=== PATIENT | male | born 1995 | race Two or more races ===

== ENCOUNTER 2020-02-12 12:48 | Inpatient (IN) ==
[2020-02-12] MEDS ORDERED: SODIUM CHLORIDE 0.9% 1000ML 1,000 ML IV ONE ×2 (13:21→17:25)
--- NOTE | 2020-02-12 13:23 | Emergency Department Note ---
History of Present Illness General Chief complaint: Illness Stated complaint: MUSCLE PAIN AFTER EXTREME EXCERCISE,DARK URINE Time Seen by Provider: 02/12/20 13:08 History of Present Illness Provider complaint: Muscle aches and dark urine Onset (ago): day(s) 2 Severity: moderate Maximum Pain Intensity: 6 Quality: + aching 24-year-old male presents emergency department with muscle aches and dark urine. He states he is started working out again recently doing "intense" workouts for the last 2 days after. Of not working out for quite some time. He states he is noticed that he has been having a lot of muscle aches and noticed 2 days ago that he was having dark urine. He denies any hematuria but states it is extremely dark. He states he has been drinking a lot of water but is not been helping his myalgias or his dark urine. No supplements such as creatinine or anabolic steroids are being reported to be used by the patient. No chest pain or difficulty breathing. No fevers. No loss of taste or smell. Home Medications Home Medications Medication Instructions Recorded Confirmed Type azelastine 2 spray INTRANASAL BID 02/12/20 02/12/20 History cetirizine 10 mg PO QAM 02/12/20 02/12/20 History escitalopram oxalate [Lexapro] 5 mg PO QAM 02/12/20 02/12/20 History fluticasone propionate [Flonase 2 spray INTRANASAL BID 02/12/20 02/12/20 History Allergy Relief] lorazepam 0.5 mg PO DIRECTED PRN 02/12/20 02/12/20 History montelukast [Singulair] 10 mg PO HS 02/12/20 02/12/20 History oxymetazoline [Afrin 2 spray INTRANASAL Q12H 02/12/20 02/12/20 History (oxymetazoline)] trazodone 0 mg PO HS 02/12/20 02/12/20 History Allergies Allergy/AdvReac Type Severity Reaction Status Date / Time No Known Allergies Allergy Unverified 02/12/20 13:41 Past Med/Surg History Medical History (Updated 02/12/20 @ 18:35 by Jeremiah Lino) No pertinent family history No pertinent past medical history Surgical History (Updated 02/12/20 @ 13:23 by Jeremiah Lino) No pertinent past surgical history Social History Feels Safe at Home: Yes Smoking Status: Never smoker Review of Systems A total of 10 systems reviewed and were otherwise negative Physical Exam Vital Signs Vital Signs - 24 hr 02/12/20 12:56 02/12/20 14:55 02/12/20 14:56 Temperature 36.9 C Temperature Source Oral Pulse Rate 113 H 85 Pulse Rate [Finger] 82 Pulse Rate from SpO2 Sensor 84 Respiratory Rate 20 26 H 20 Respiratory Effort / Characteristics Non-Labored Spontaneous Non-Labored Spontaneous Respiratory Depth Normal Normal Respiratory Pattern Regular Regular Blood Pressure 134/81 130/87 Blood Pressure [Right Arm] 130/87 Blood Pressure Mean 98 90 Blood Pressure Mean [Right Arm] 101 Pulse Oximetry 97 98 98 Oxygen Delivery Method Room Air Room Air Room Air Sepsis Recent Fever Within 48 Hours No Sepsis New/Unexplained Change in Mental Status No Sepsis Action Taken by Nursing No Action Required 02/12/20 15:15 02/12/20 15:20 02/12/20 15:30 Temperature Temperature Source Pulse Rate 84 83 73 Pulse Rate [Finger] Pulse Rate from SpO2 Sensor 84 82 75 Respiratory Rate 24 18 23 Respiratory Effort / Characteristics Respiratory Depth Respiratory Pattern Blood Pressure Blood Pressure [Right Arm] Blood Pressure Mean Blood Pressure Mean [Right Arm] Pulse Oximetry 98 98 98 Oxygen Delivery Method Room Air Room Air Room Air Sepsis Recent Fever Within 48 Hours Sepsis New/Unexplained Change in Mental Status Sepsis Action Taken by Nursing 02/12/20 15:40 02/12/20 15:50 02/12/20 16:00 Temperature Temperature Source Pulse Rate 75 74 88 Pulse Rate [Finger] Pulse Rate from SpO2 Sensor 77 74 85 Respiratory Rate 16 22 Respiratory Effort / Characteristics Respiratory Depth Respiratory Pattern Blood Pressure Blood Pressure [Right Arm] Blood Pressure Mean Blood Pressure Mean [Right Arm] Pulse Oximetry 97 98 97 Oxygen Delivery Method Room Air Room Air Room Air Sepsis Recent Fever Within 48 Hours Sepsis New/Unexplained Change in Mental Status Sepsis Action Taken by Nursing 02/12/20 16:11 02/12/20 16:20 02/12/20 16:30 Temperature Temperature Source Pulse Rate 71 68 76 Pulse Rate [Finger] Pulse Rate from SpO2 Sensor 71 68 Respiratory Rate 21 24 Respiratory Effort / Characteristics Respiratory Depth Respiratory Pattern Blood Pressure Blood Pressure [Right Arm] Blood Pressure Mean Blood Pressure Mean [Right Arm] Pulse Oximetry 98 97 Oxygen Delivery Method Room Air Room Air Room Air Sepsis Recent Fever Within 48 Hours Sepsis New/Unexplained Change in Mental Status Sepsis Action Taken by Nursing 02/12/20 16:40 02/12/20 16:50 02/12/20 17:00 Temperature Temperature Source Pulse Rate 61 76 67 Pulse Rate [Finger] Pulse Rate from SpO2 Sensor 64 Respiratory Rate 15 20 Respiratory Effort / Characteristics Respiratory Depth Respiratory Pattern Blood Pressure Blood Pressure [Right Arm] Blood Pressure Mean Blood Pressure Mean [Right Arm] Pulse Oximetry 99 Oxygen Delivery Method Room Air Room Air Room Air Sepsis Recent Fever Within 48 Hours Sepsis New/Unexplained Change in Mental Status Sepsis Action Taken by Nursing 02/12/20 17:10 Temperature Temperature Source Pulse Rate 64 Pulse Rate [Finger] Pulse Rate from SpO2 Sensor 64 Respiratory Rate 14 Respiratory Effort / Characteristics Respiratory Depth Respiratory Pattern Blood Pressure Blood Pressure [Right Arm] Blood Pressure Mean Blood Pressure Mean [Right Arm] Pulse Oximetry 98 Oxygen Delivery Method Room Air Sepsis Recent Fever Within 48 Hours Sepsis New/Unexplained Change in Mental Status Sepsis Action Taken by Nursing Physical Exam GENERAL: He is oriented to person, place, and time. He appears well-developed and well-nourished. He does not appear distressed. HENT: Exam performed. - Head: Normocephalic and atraumatic. - Right Ear: External ear normal. No mastoid tenderness. - Left Ear: External ear normal. No mastoid tenderness. - Mouth/Throat: The oropharynx is clear and moist. No trismus in the jaw. No dental abscesses or uvula swelling. No oropharyngeal exudate or tonsillar abscesses. EYES: Conjunctivae and EOM are normal. Pupils are equal, round, and reactive to light. Right eye exhibits no discharge. Left eye exhibits no discharge. No scleral icterus. NECK: Normal range of motion. Neck supple. No JVD present. No spinous process tenderness present. No carotid bruit present. No rigidity. No tracheal deviation and normal range of motion present. No Brudzinski's sign and no Kernig's sign noted. CV: Normal rate, regular rhythm, normal heart sounds and intact distal pulses. There is no peripheral edema. Palpable radial pulses bue. PULM/CHEST: Effort normal and breath sounds normal. No respiratory distress. No stridor. He has no wheezes. He has no rales. - Chest Wall: He exhibits no tenderness. ABD: The abdomen is soft. Bowel sounds are normal. He has no distension. No mass is present. There is no tenderness. There is no rebound, no guarding, no Martin's sign and no tenderness at McBurney's point. Rovsig negative. MUSC/SKEL: Normal range of motion. There is no peripheral edema, tenderness or deformity. LYMPH: No cervical adenopathy. NEURO: He is alert and oriented to person, place, and time. He has normal strength. No cranial nerve deficit or sensory deficit. Coordination and gait normal. GCS eye subscore is 4. GCS verbal subscore is 5. GCS motor subscore is 6. Cerebellar tests wnl. SKIN: Skin is warm and dry. He is not diaphoretic. PSYCH: He has a normal mood and affect. Behavior is normal. Judgment and thought content normal. Course Course 1323: The patient was evaluated in room B5. A complete history and physical exam was performed. 183: Vital signs stable. Patient's urinalysis is highly concerning for rhabdomyolysis given the gross appearance of blood with no red blood cells apparent on the urinalysis. Multiple attempts were made to get a creatinine kinase level, however no reading was available when discussed with lab, it is thought the levels are still high no accurate reading is available. Charge nurse spoke with lab and after 100 dilutions with water the CK was still 1000 or greater. I discussed the case with Dr. [facility] hospitalist who agreed to admit the patient. Patient was continued on IV fluids. Administered Medications Discontinued Medications Sodium Chloride (Nss 1000ml) 1,000 mls @ 999 mls/hr IV .Q1H1M ONE Stop: 02/12/20 14:21 Last Infusion: 02/12/20 15:28 Dose: 0 mls/hr Documented by: [id number] Admin: 02/12/20 14:26 Dose: 999 mls/hr Documented by: [id number] Sodium Chloride (Nss 1000ml) 1,000 mls @ 999 mls/hr IV .Q1H1M ONE Stop: 02/12/20 18:25 Last Admin: 02/12/20 17:44 Dose: 999 mls/hr Documented by: [id number] Medical Decision Making Laboratory Data Lab Results 02/12/20 02/12/20 Range/Units 14:16 14:50 POC Hgb 16.3 (14.0-18.0) g/dl POC Hct 48 (42-52) % POC Sodium 139 (135-144) mmol/L POC Potassium 4.0 (3.3-5.0) mmol/L POC Chloride 100 L (101-112) mmol/L POC Total CO2 27 (24-31) mmol/L POC Anion Gap 17.0 (16-25) mmol/L POC BUN 7 (7-18) mg/dl POC Creatinine 0.8 (0.6-1.3) mg/dl POC Glucose (other) 106 H (70-99) mg/dl POC Ioniz Calcium [place] 1.23 (1.12-1.32) mmol/l Urine Color Dark Yellow Urine Appearance Clear (Clear) Urine pH 8.0 H (4.5-7.5) Ur Specific [place] 1.016 (1.000-1.030) Urine Protein 3+ H (Negative) Urine Glucose (UA) Negative (Negative) Urine Ketones Negative (Negative) Urine Blood 3+ H (Negative) Urine Nitrite Negative (Negative) Urine Bilirubin Negative (Negative) Urine Urobilinogen Negative (Negative) Ur Leukocyte Esterase 1+ H (Negative) Urine WBC (Auto) 0 (0-5) /hpf Urine RBC (Auto) 0-4 (0-4) /hpf U Hyaline Cast (Auto) 0 (0-5) /lpf U Epithel Cells (Auto) 0-5 (0-5) /lpf Urine Bacteria (Auto) Negative (Negative) MDM Narrative Vital signs stable. Patient's urinalysis is highly concerning for rhab domyolysis given the gross appearance of blood with no red blood cells apparent on the urinalysis. Multiple attempts were made to get a creatinine kinase level, however no reading was available when discussed with lab, it is thought the levels are still high no accurate reading is available. Charge nurse spoke with lab and after 100 dilutions with water the CK was still 1000 or greater. I discussed the case with Dr. [facility] hospitalist who agreed to admit the patient. Patient was continued on IV fluids. Impression & Plan Rhabdomyolysis Discharge Plan Visit Data Chief Complaint: Illness Stated Complaint: MUSCLE PAIN AFTER EXTREME EXCERCISE,DARK URINE ED Provider: Jeremiah Lino Discharge Problem: Rhabdomyolysis Patient Disposition: Being Evaluated by Hospitalist Forms Stand Alone Forms: My [facility] Prescriptions Prescriptions: No Action cetirizine 10 mg Tablet 10 mg PO QAM RF: 0 lorazepam 0.5 mg Tablet 0.5 mg PO DIRECTED PRN (Reason: Anxiety) RF: 0 trazodone 100 mg Tablet 0 mg PO HS RF: 0 montelukast [Singulair] 10 mg Tablet 10 mg PO HS RF: 0 azelastine 137 mcg (0.1 %) Aerosol,[place] 2 spray INTRANASAL BID RF: 0 fluticasone propionate [Flonase Allergy Relief] 50 mcg/actuation [place],Suspension 2 spray INTRANASAL BID RF: 0 oxymetazoline [Afrin (oxymetazoline)] 0.05 % [place],Non-Aerosol 2 spray INTRANASAL Q12H RF: 0 escitalopram oxalate [Lexapro] 5 mg Tablet 5 mg PO QAM RF: 0 Referrals Referrals: Navin Zelaya MD [Primary Care Provider] - Discharge Problem: Rhabdomyolysis Qualifiers: Rhabdomyolysis type: non-traumatic Qualified Code(s): M62.82 - Rhabdomyolysis
[2020-02-12 14:29] LABS: iSTAT Creatinine 0.8 mg/dl (0.6-1.3); iSTAT Hemoglobin 16.3 g/dl (14.0-18.0); iSTAT Ionized Calcium 1.23 mmol/l (1.12-1.32)
[2020-02-12 15:07] LABS: Appearance Urine Clear (Clear); Bacteria Urine Automated Negative (Negative); Bilirubin Urine Negative (Negative); Blood Urine 3+ (Negative); Cast Urine Automated 0 /lpf (0-5); Epithelial Cell Urine Auto 0-5 /lpf (0-5); Glucose Urine UA Negative (Negative); Ketones Urine Negative (Negative); Leukocyte Esterase Urine 1+ (Negative); Nitrite Urine Negative (Negative); RBC Urine Automated 0-4 /hpf (0-4); Specific Gravity Urine 1.016 (1.000-1.030); Urobilinogen Urine Negative (Negative); WBC Urine Automated 0 /hpf (0-5)
[2020-02-12 15:26] LABS: Protein Urine 3+ (Negative)
[2020-02-12 15:27] LABS: Color Urine Dark Yellow; Sulfosalicylic Acid Urine Positive (Negative)
[2020-02-12] MEDS ORDERED: SODIUM CHLORIDE 0.9% 1000ML 1,000 ML IV SCH (18:30)
--- NOTE | 2020-02-12 19:21 | History & Physical Report ---
Date of Service February 12, 2020 Assessment & Plan (1) Rhabdomyolysis: Patient's CK is greater than 100,000 he will need vigorous hydration shooting for urine output up to 300 mL an hour. Normal saline is employed Patient is a job at [employer] he desperately needs to be there on on morning he may decide to leave no matter what to report to his job on Saturday (2) Insomnia: Patient will maintain his trazodone at night (3) Depression: Continues on Lexapro (4) Environmental allergies: Remains on Singulair fluticasone and other nasal sprays (5) DVT prophylaxis: Lovenox will be used for DVT prevention History of Present Illness Primary Care Provider: Navin Zelaya MD Patient is visiting the area decided to do a vigorous workout approximately 2 days prior to presentation noticed he was peeing dark-colored urine came in and found that he had rhabdomyolysis with a creatinine kinase greater than 100,000. Patient has no other health concerns or problems he is extremely sore muscles of his legs torso and arms. Patient typically is only taking medications for allergies with Astelin sertraline and fluticasone nasal sprays plus Singulair. He takes Lexapro and trazodone for depression and sleep. Patient self volunteers he drinks a lot of caffeine but nothing is helped reduce his dark urine. He denies any other [id number] medication substances of any kind. He is never had this happen before. Allergies Allergy/AdvReac Type Severity Reaction Status Date / Time No Known Allergies Allergy Unverified 02/12/20 13:41 Home Medications Home Medications Medication Instructions Recorded Confirmed Type azelastine 2 spray INTRANASAL BID 02/12/20 02/12/20 History cetirizine 10 mg PO QAM 02/12/20 02/12/20 History escitalopram oxalate [Lexapro] 5 mg PO QAM 02/12/20 02/12/20 History fluticasone propionate [Flonase 2 spray INTRANASAL BID 02/12/20 02/12/20 History Allergy Relief] lorazepam 0.5 mg PO DIRECTED PRN 02/12/20 02/12/20 History montelukast [Singulair] 10 mg PO HS 02/12/20 02/12/20 History oxymetazoline [Afrin 2 spray INTRANASAL Q12H 02/12/20 02/12/20 History (oxymetazoline)] trazodone 0 mg PO HS 02/12/20 02/12/20 History Past Med/Surg History Medical History (Updated 02/12/20 @ 19:22 by Anatoly Purvis MD) No pertinent family history No pertinent past medical history Surgical History (Updated 02/12/20 @ 13:23 by Jeremiah Lino) No pertinent past surgical history Social History Feels Safe at Home: Yes Smoking Status: Never smoker Review of Systems Review of Systems: Mild distress and fatigue no headache, blurry or double vision no speech or swallowing issues no chest pain, pressure or palpitations no shortness of breath, cough or wheezes no abdominal pain, nausea or vomiting, diarrhea or constipation no dysuria, hematuria or frequency no focal joint pain does complain of significant muscle pain of legs and abs. no back pain, CVA tenderness or radicular pain no bruising, bleeding or rashes no focal signs of weakness or numbness or altered sensation no complaints or anxiety or depression.. Physical Exam Physical Exam: The patient appeared well nourished and normally developed. Vital signs as documented. Head exam is normocephalic atraumatic no scleral icterus Neck is without JVD, thyromegaly, or carotid bruits. Lungs are clear to auscultation, no focal loss of breath sounds Cardiac exam, Rhythm is regular.. No murmurs, rubs or gallops. Abdominal exam reveals normal bowel sounds, soft non tender, no masses Extremities are nonedematous and lower extremity muscles and abdominal muscles are extremely sore Neurologic exam is alert and oriented, no focal loss of strength or sensation Skin is without bruises or rashes Psychologically is without concerns for anxiety or depression Results & Data Results & Data ([facility]) Vital Signs (Past 12 Hours) Vital Signs Temp Pulse Pulse Resp BP BP Pulse Ox 02/12/20 19:01 93 H 16 02/12/20 19:00 78 17 124/81 02/12/20 18:50 76 19 99 02/12/20 18:40 91 H 02/12/20 18:31 78 23 99 02/12/20 18:30 66 19 120/79 100 02/12/20 18:20 62 23 100 02/12/20 18:10 66 19 100 07/03/20 18:01 63 22 98 02/12/20 18:00 60 15 116/79 99 02/12/20 17:50 66 21 99 02/12/20 17:40 75 23 99 02/12/20 17:31 60 21 98 02/12/20 17:30 65 16 121/72 99 02/12/20 17:27 70 16 99 02/12/20 17:26 94 H 16 124/89 97 02/12/20 17:10 64 14 98 02/12/20 17:00 67 20 99 02/12/20 16:50 76 15 02/12/20 16:40 61 02/12/20 16:30 76 02/12/20 16:20 68 24 97 02/12/20 16:11 71 21 98 02/12/20 16:00 88 22 97 02/12/20 15:50 74 98 02/12/20 15:40 75 16 97 02/12/20 15:30 73 23 98 02/12/20 15:20 83 18 98 02/12/20 15:15 84 24 98 02/12/20 14:56 82 20 130/87 98 02/12/20 14:55 85 26 H 130/87 98 02/12/20 12:56 98.4 F 113 H 20 134/81 97 Code Status & VTE Plan VTE Prophylaxis Plan VTE Prophylaxis will be ordered: Yes PG Care Time/CCT Total # of Minutes Spent Total Time Spent with Patient: Total time spent is greater than 50% in coordination of care (as documented) at patient's floor/unit and/or counseling patient: Coding Level of Care Code 43811 Initial Inpt Care Lvl 2 Diagnoses Rhabdomyolysis M62.82 Rhabdomyolysis type: non-traumatic Insomnia G47.00 Depression F32.9 Environmental allergies Z91.09 DVT prophylaxis Z29.9 (1) Rhabdomyolysis Rhabdomyolysis type: non-traumatic Qualified Code(s): M62.82 - Rhabdomyolysis
[2020-02-12] MEDS ORDERED: ONDANSETRON INJ 2 MG/ML 2 ML VIAL IV PRN (19:53)
[2020-02-12] MEDS ORDERED: ACETAMINOPHEN 500 MG TAB PO PRN (19:53)
[2020-02-12] MEDS: SODIUM CHLORIDE 0.9% 1000ML 1,000 ML IV SCH ×2 (20:18→22:54)
[2020-02-12] MEDS: TRAZODONE HCL 100 MG TAB PO SCH (21:05)
[2020-02-12] MEDS: ENOXAPARIN INJ 40 MG/0.4 ML SYR SQ SCH (21:05)
[2020-02-12] MEDS: FLUTICASONE PROPIONATE NA SPR 16 GM BTL SCH (21:05)
[2020-02-12] MEDS: MONTELUKAST SODIUM 10 MG TABLET PO SCH (21:07)
[2020-02-12] MEDS: LORazepam 0.5 MG TAB PO PRN (21:22)
[2020-02-12] MEDS: OXYCODONE HCL IR 5 MG TAB (IMMEDIATE RELEASE) PO PRN (23:47)
[2020-02-13] MEDS: SODIUM CHLORIDE 0.9% 1000ML 1,000 ML IV SCH ×6 (02:51→23:24)
[2020-02-13 07:44] LABS: BUN Creatinine Ratio 11.7 (10-20); Blood Urea Nitrogen 7 mg/dl (7-18); Calcium 7.9 mg/dl (8.5-10.1); Carbon Dioxide 25 mmol/L (21-32); Chloride 117 mmol/L (98-107); Creatinine Clr Calc Pharmacy 197.5 ml/min; Est GFR (African American) > 150.0; Est GFR (Non-African American) 143.7; Glucose 79 mg/dl (70-99); Potassium 4.2 mmol/L (3.5-5.1); Sodium 144 mmol/L (136-145)
[2020-02-13] MEDS: FLUTICASONE PROPIONATE NA SPR 16 GM BTL SCH ×2 (07:55→20:28)
[2020-02-13] MEDS: ESCITALOPRAM OXALATE 20 MG TAB PO SCH (07:56)
[2020-02-13] MEDS: OXYCODONE HCL IR 5 MG TAB (IMMEDIATE RELEASE) PO PRN ×3 (07:56→23:24)
[2020-02-13 08:48] LABS: Creatine Kinase > 100000 U/L (39-308)
[2020-02-13] MEDS ORDERED: ESCITALOPRAM OXALATE 10 MG TAB PO SCH (09:00)
[2020-02-13] MEDS: LORazepam 0.5 MG TAB PO PRN ×2 (10:57→17:28)
[2020-02-13 16:28] LABS: BUN Creatinine Ratio 8.2 (10-20); Calcium 8.3 mg/dl (8.5-10.1); Creatinine Clr Calc Pharmacy 150.7 ml/min; Est GFR (Non-African American) 128.6; Potassium 4.1 mmol/L (3.5-5.1)
[2020-02-13] MEDS: TRAZODONE HCL 100 MG TAB PO SCH (20:28)
[2020-02-13] MEDS: MONTELUKAST SODIUM 10 MG TABLET PO SCH (20:29)
[2020-02-13] MEDS: ENOXAPARIN INJ 40 MG/0.4 ML SYR SQ SCH (20:29)
--- NOTE | 2020-02-13 20:37 | Hospitalist Progress Note ---
Date of Service February 13, 2020 Assessment & Plan (1) Rhabdomyolysis: 2nd to vigorous work-outs at the gym on Saturday/Saturday after a long period of no physical activity prior to such. Repeat CPK this afternoon finally trending down to <100,000. Creatinine remains stable with good UOP. Cont NS hydration; slightly lower rate to 200cc/hr. Repeat BMP, CPK in am. No evidence of any compartment syndrome in any limb. (2) Insomnia: Cont trazodone HS (3) Depression: Cont lexapro daily (4) Environmental allergies: Cont Singulair and fluticasone nasal spray (5) DVT prophylaxis: Lovenox Admission and Anticipated Discharge Date Admission Date: February 12, 2020 Subjective patient continues with soreness in both legs but arms are feeling better. denies swelling of any limb. voiding well. eating well. no new complaints. he confirms he worked out heavily on Saturday/Saturday of this week. Hadn't gone to gym in "a long time." Review of Systems Constitutional: no fever, no chills, no fatigue and no anorexia Respiratory: no dyspnea Cardiovascular: no chest pain Gastrointestinal: no abdominal pain Physical Exam Constitutional: well developed and well nourished; no acute distress and no altered mental status ENMT: external ear and nose normal, oropharynx normal Respiratory: normal respiratory effort, lungs clear to auscultation Cardiovascular: Rate/Rhythm: regular rate and regular rhythm Heart Sounds: normal S1 and normal S2; no murmur Vessels: posterior tibial pulses present and dorsalis pedis pulses present; no JVD Extremities: no edema Gastrointestinal (Abdomen): normal bowel sounds, soft, nontender, no hepatosplenomegaly Musculoskeletal: no abnormalities of any limb; thighs without swelling Psychiatric: A+Ox3, euthymic affect Results & Data Results & Data ([facility]) Vital Signs (Past 12 Hours) Vital Signs Temp Pulse Resp BP Pulse Ox 02/13/20 15:04 37.1 C 75 21 118/71 98 Laboratory Results Laboratory Results - last 24 hr 02/13/20 02/13/20 06:13 15:54 Sodium 144 140 Potassium 4.2 4.1 Chloride 117 H 111 H Carbon Dioxide 25 26 Anion Gap 2.0 L 4.0 BUN 7 6 L Creatinine 0.58 L 0.76 Est Cr Clr Drug Dosing 197.5 150.7 Est GFR ( Amer) > 150.0 149.0 Est GFR (Non-Af Amer) 143.7 128.6 BUN/Creatinine Ratio 11.7 8.2 L Glucose 79 88 Calcium 7.9 L 8.3 L Total Creatine Kinase > 435836 H 65533 H PG Care Time/CCT Total # of Minutes Spent Total Time Spent with Patient: Total time spent is greater than 50% in coordination of care (as documented) at patient's floor/unit and/or counseling patient: Coding Level of Care Code 69572 Subseq Hosp Care Lvl 2 Diagnoses Rhabdomyolysis M62.82 Rhabdomyolysis type: non-traumatic Insomnia G47.00 Insomnia type: unspecified Depression F32.89 Depression Type: other depression Environmental allergies Z91.09 DVT prophylaxis Z29.9 (1) Rhabdomyolysis Rhabdomyolysis type: non-traumatic Qualified Code(s): M62.82 - Rhabdomyolysis (2) Insomnia Insomnia type: unspecified Qualified Code(s): G47.00 - Insomnia, unspecified (3) Depression Depression Type: other depression Qualified Code(s): F32.89 - Other specified depressive episodes
[2020-02-14] MEDS: SODIUM CHLORIDE 0.9% 1000ML 1,000 ML IV SCH ×4 (04:56→20:51)
[2020-02-14] MEDS: LORazepam 0.5 MG TAB PO PRN ×3 (04:58→20:53)
[2020-02-14 06:47] LABS: Blood Urea Nitrogen 7 mg/dl (7-18); Calcium 8.3 mg/dl (8.5-10.1); Carbon Dioxide 27 mmol/L (21-32); Chloride 114 mmol/L (98-107); Creatinine Clr Calc Pharmacy 197.5 ml/min; Est GFR (African American) > 150.0; Est GFR (Non-African American) 143.7; Glucose 73 mg/dl (70-99); Potassium 3.8 mmol/L (3.5-5.1); Sodium 143 mmol/L (136-145)
[2020-02-14] MEDS: ESCITALOPRAM OXALATE 20 MG TAB PO SCH (08:17)
[2020-02-14] MEDS: FLUTICASONE PROPIONATE NA SPR 16 GM BTL SCH ×2 (08:17→20:54)
[2020-02-14 08:41] LABS: Creatine Kinase 84542 U/L (39-308)
[2020-02-14] MEDS: OXYCODONE HCL IR 5 MG TAB (IMMEDIATE RELEASE) PO PRN ×2 (09:20→15:53)
[2020-02-14] MEDS: SENNA 8.6 MG TAB PO SCH (17:44)
[2020-02-14] MEDS: POLYETHYLENE (MIRALAX) 17 GM PACK PO SCH (17:44)
--- NOTE | 2020-02-14 19:28 | Hospitalist Progress Note ---
Date of Service February 14, 2020 Assessment & Plan (1) Rhabdomyolysis: 2nd to vigorous work-outs at the gym on Saturday/Saturday of this past week. He had not done heavy physical activity prior to such in quite some time. CPK now in the 80,000's. Had peaked >100,000. Creatinine remains stable with good UOP. Cont NS hydration at rate of 200cc/hr. No evidence of pulmonary edema or volume overload. Repeat BMP, CPK in am. No evidence of any compartment syndrome in any limb either. I STRONGLY ADVISED HIM TO REMAIN HOSPITALIZED. HE IS STILL AT HIGH RISK OF KIDNEY INJURY WITH RESULTING ACUTE RENAL FAILURE. (2) Insomnia: Cont trazodone HS (3) Depression: Cont lexapro daily (4) Environmental allergies: Cont Singulair and fluticasone nasal spray (5) Constipation: 2nd opiates. senna. miralax. ambulate. (6) DVT prophylaxis: Lovenox daily Admission and Anticipated Discharge Date Admission Date: February 12, 2020 Subjective patient feeling good. b/l thigh pain improving. not doing much ambulating. c/o constipation. eating and drinking well. no new complaints. patient wants to leave the hospital today; has to get back to work tomorrow in [place], his hometown. I explained that it is unsafe for him to leave the hospital at a CPK level >48169. He stated he would drink copious fluids upon d/c. I further explained that he is receiving 6+ liters of IV fluid each day and it would be impossible for him to drink that much during waking hours (and it would be unsafe). he agreed to stay at least until tomorrow. Review of Systems Respiratory: no dyspnea and no dyspnea on exertion Cardiovascular: no chest pain Gastrointestinal: no abdominal pain, no nausea and no vomiting Physical Exam Constitutional: well developed and well nourished; no acute distress and no altered mental status ENMT: external ear and nose normal, oropharynx normal Respiratory: normal respiratory effort, lungs clear to auscultation Cardiovascular: Rate/Rhythm: regular rate and regular rhythm Heart Sounds: normal S1 and normal S2; no murmur Vessels: posterior tibial pulses present and dorsalis pedis pulses present; no JVD Extremities: no edema Gastrointestinal (Abdomen): normal bowel sounds, soft, nontender, no hepatosplenomegaly Musculoskeletal: b/l thighs again without edema or tenderness Psychiatric: A+Ox3, euthymic affect Results & Data Results & Data ([facility]) Vital Signs (Past 12 Hours) Vital Signs Temp Pulse Resp BP Pulse Ox 02/14/20 15:37 36.9 C 77 18 109/65 98 Laboratory Results Laboratory Results - last 24 hr 02/14/20 05:45 Sodium 143 Potassium 3.8 Chloride 114 H Carbon Dioxide 27 Anion Gap 2.0 L BUN 7 Creatinine 0.58 L Est Cr Clr Drug Dosing 197.5 Est GFR ( Amer) > 150.0 Est GFR (Non-Af Amer) 143.7 BUN/Creatinine Ratio 12.0 Glucose 73 Calcium 8.3 L Total Creatine Kinase 84001 H PG Care Time/CCT Total # of Minutes Spent Total Time Spent with Patient: Total time spent is greater than 50% in coordination of care (as documented) at patient's floor/unit and/or counseling patient: Coding Level of Care Code 50821 Subseq Hosp Care Lvl 2 Diagnoses Rhabdomyolysis M62.82 Rhabdomyolysis type: non-traumatic Insomnia G47.00 Insomnia type: unspecified Depression F32.89 Depression Type: other depression Environmental allergies Z91.09 Constipation K59.03 Constipation type: drug induced constipation DVT prophylaxis Z29.9 (1) Rhabdomyolysis Rhabdomyolysis type: non-traumatic Qualified Code(s): M62.82 - Rhabdomyolysis (2) Insomnia Insomnia type: unspecified Qualified Code(s): G47.00 - Insomnia, unspecified (3) Depression Depression Type: other depression Qualified Code(s): F32.89 - Other specified depressive episodes (4) Constipation Constipation type: drug induced constipation Qualified Code(s): K59.03 - Drug induced constipation
[2020-02-14] MEDS: TRAZODONE HCL 100 MG TAB PO SCH (20:54)
[2020-02-14] MEDS: MONTELUKAST SODIUM 10 MG TABLET PO SCH (20:54)
[2020-02-14] MEDS: ENOXAPARIN INJ 40 MG/0.4 ML SYR SQ SCH (20:54)
[2020-02-15] MEDS: SODIUM CHLORIDE 0.9% 1000ML 1,000 ML IV SCH ×4 (01:44→15:33)
[2020-02-15] MEDS: OXYCODONE HCL IR 5 MG TAB (IMMEDIATE RELEASE) PO PRN (05:32)
[2020-02-15 07:03] LABS: BUN Creatinine Ratio 9.5 (10-20); Blood Urea Nitrogen 6 mg/dl (7-18); Calcium 8.7 mg/dl (8.5-10.1); Carbon Dioxide 30 mmol/L (21-32); Chloride 110 mmol/L (98-107); Creatinine Clr Calc Pharmacy 176.2 ml/min; Est GFR (African American) > 150.0; Est GFR (Non-African American) 137.1; Glucose 71 mg/dl (70-99); Potassium 3.9 mmol/L (3.5-5.1); Sodium 142 mmol/L (136-145)
[2020-02-15] MEDS: ESCITALOPRAM OXALATE 20 MG TAB PO SCH (07:52)
[2020-02-15] MEDS: SENNA 8.6 MG TAB PO SCH (07:52)
[2020-02-15] MEDS: POLYETHYLENE (MIRALAX) 17 GM PACK PO SCH (07:52)
[2020-02-15] MEDS: FLUTICASONE PROPIONATE NA SPR 16 GM BTL SCH (07:53)
[2020-02-15 08:11] LABS: Creatine Kinase 36075 U/L (39-308)
[2020-02-15] MEDS: LORazepam 0.5 MG TAB PO PRN (09:49)
--- NOTE | 2020-02-15 15:17 | Hospitalist Progress Note ---
Date of Service February 15, 2020 Assessment & Plan (1) Rhabdomyolysis: 24-year-old male with past medical history insomnia, depression presents with concern for rhabdomyolysis. Rhabdomyolysis -From vigorous work-outs at the gym on Saturday/Saturday of this past week. He had not done heavy physical activity prior to such in quite some time -CPK downtrending, now 36,075 . Had peaked >100,000. -Creatinine remains stable with good UOP -Cont NS hydration at rate of 200cc/hr. -No evidence of pulmonary edema or volume overload. -Repeat BMP, CPK in am -No evidence of any compartment syndrome in any limb either. -Hopefully can discharge in the a.m. if CPK continues to improve. Explained to patient that ideally this number will be below 5000 but is not a hard line in the sand. Patient is eager to be discharged, but voices understanding Insomnia Cont trazodone HS Depression: -Cont lexapro daily Environmental allergies: -Cont Singulair and fluticasone nasal spray Constipation: -2/2 opiates -Cont senna, miralax, encouraged ambulation FEN/GI: NSS at 200. Regular Diet DVT prophylaxis: Lovenox daily Full Code Dispo: Med Tele Admission and Anticipated Discharge Date Admission Date: February 12, 2020 Supervising Physician Co-Signing Physician Notes Attending Attestation - Pt seen/examined, chart reviewed, care plan d/w PGY3 Dr Kip Mae. I agree w/ the rosas components of this progress note. Please see d/c summary from same date for my exam and full note. Kulwant Lr MD Subjective 24-year-old male found in bed this a.m. in no acute distress. No acute over night events. Patient states that he is feeling good. Eager to be discharged. Explained to patient about lab abnormalities and that it is in his best interest to stay in hospital. Patient seem to be understanding. Bilateral thigh pain improving. Patient tolerating p.o. intake. Patient with no other acute concerns or complaints. Review of Systems Review of Systems: All systems reviewed & are unremarkable except as noted in HPI & below Physical Exam Constitutional: WD/WN, vitals as above Eyes: PERRL, conjunctivae normal, anicteric sclerae ENMT: external ear and nose normal, oropharynx normal Respiratory: normal respiratory effort, lungs clear to auscultation Cardiovascular: RRR, no murmur, no edema Gastrointestinal (Abdomen): normal bowel sounds, soft, nontender, no hepatosplenomegaly Skin: no rashes, warm and dry Psychiatric: A+Ox3, euthymic affect Results & Data Results & Data ([facility]) Vital Signs (Past 12 Hours) Vital Signs Temp Pulse Resp BP Pulse Ox 02/15/20 15:06 36.7 C 85 18 122/77 93 02/15/20 07:56 36.5 C 74 18 112/73 98 Laboratory Results Laboratory Results - last 24 hr 02/15/20 05:48 Sodium 142 Potassium 3.9 Chloride 110 H Carbon Dioxide 30 Anion Gap 2.0 L BUN 6 L Creatinine 0.65 Est Cr Clr Drug Dosing 176.2 Est GFR ( Amer) > 150.0 Est GFR (Non-Af Amer) 137.1 BUN/Creatinine Ratio 9.5 L Glucose 71 Calcium 8.7 Total Creatine Kinase 23370 H Medications Administered Current Inpatient Medications Acetaminophen (Tylenol) 1,000 mg PO Q6H PRN PRN Reason: pain/fever Stop: 03/13/20 19:52 Enoxaparin Sodium (Lovenox) 40 mg SQ Q24H [facility] Stop: 03/13/20 20:59 Last Admin: 02/14/20 20:54 Dose: 40 mg Documented by: Escitalopram Oxalate (Lexapro Tab) 20 mg PO QAM [facility] Stop: 03/14/20 08:59 Last Admin: 02/15/20 07:52 Dose: 20 mg Documented by: Fluticasone Propionate (Flonase) 2 sprays NA BID [facility] Stop: 03/13/20 20:59 Last Admin: 02/15/20 07:53 Dose: 2 sprays Documented by: Sodium Chloride (Nss 1000ml) 1,000 mls @ 200 mls/hr IV .Q5H [facility] Stop: 03/13/20 18:59 Last Admin: 02/15/20 10:07 Dose: 200 mls/hr Documented by: Lorazepam (Ativan) 0.5 mg PO Q6H PRN PRN Reason: Anxiety Stop: 03/13/20 20:35 Last Admin: 02/15/20 09:49 Dose: 0.5 mg Documented by: Montelukast Sodium (Singulair) 10 mg PO HS [facility] Stop: 03/13/20 20:59 Last Admin: 02/14/20 20:54 Dose: Not Given Documented by: Ondansetron HCl (Zofran) 4 mg IV Q6H PRN PRN Reason: Nausea Stop: 03/13/20 19:52 Oxycodone HCl (Roxicodone Immediate Rel) 10 mg PO Q6H PRN PRN Reason: Moderate Pain Stop: 02/26/20 19:52 Last Admin: 02/15/20 05:32 Dose: 10 mg Documented by: Polyethylene Glycol (Miralax Powder Packet) 17 gm PO DAILY [facility] Stop: 03/15/20 17:14 Last Admin: 02/15/20 07:52 Dose: 17 gm Documented by: Sennosides (Senokot) [facility]: 03/15/20 17:14 Last Admin: 02/15/20 07:52 Dose: 17.2 mg Documented by: Trazodone HCl (Desyrel) 100 mg PO [facility] Stop: 03/13/20 20:59 Last Admin: 02/14/20 20:54 Dose: 100 mg Documented by: Resident Activity Tracking Resident Involvement: Resident Care Provided Care Provided: Adult Hospital Medicine (1) Rhabdomyolysis Rhabdomyolysis type: non-traumatic Qualified Code(s): M62.82 - Rhabdomyolysis
--- NOTE | 2020-02-15 16:54 | Discharge Summary ---
Date of Service February 15, 2020 Admission HPI Per Admitting Provider Patient is visiting the area decided to do a vigorous workout approximately 2 days prior to presentation noticed he was peeing dark-colored urine came in and found that he had rhabdomyolysis with a creatinine kinase greater than 100,000. Patient has no other health concerns or problems he is extremely sore muscles of his legs torso and arms. Patient typically is only taking medications for allergies with Astelin sertraline and fluticasone nasal sprays plus Singulair. He takes Lexapro and trazodone for depression and sleep. Patient self volunteers he drinks a lot of caffeine but nothing is helped reduce his dark urine. He denies any other [id number] medication substances of any kind. He is never had this happen before. Principal Diagnosis rhabdomyolysis Discharge Exam Constitutional WD/WN, vitals as above Eyes PERRL, conjunctivae normal, anicteric sclerae ENMT external ear and nose normal, oropharynx normal Respiratory normal respiratory effort, lungs clear to auscultation Cardiovascular RRR, no murmur, no edema Gastrointestinal (Abdomen) normal bowel sounds, soft, nontender, no hepatosplenomegaly Skin no rashes, warm and dry Psychiatric A+Ox3, euthymic affect Discharge Data Allergies Allergy/AdvReac Type Severity Reaction Status Date / Time No Known Allergies Allergy Unverified 02/12/20 13:41 Consultations 02/12/20 18:21 ED Decision to Admit Stat Hospital Course (1) Rhabdomyolysis: 24-year-old male with past medical history insomnia, depression presents with concern for rhabdomyolysis. Rhabdomyolysis -From vigorous work-outs at the gym on Saturday/Saturday of this past week. He had not done heavy physical activity prior to such in quite some time -CPK downtrending, 36,075 on day of d/c . Had peaked >100,000 on admission -Patient was very eager to leave hospital and had requested to leave AMA on day of discharge. We explained why hospitalization for at least another day was beneficial. Pt understood risk of doing so. We will repeat CK level along with BMP for tomorrow February 16, 2020 and these results to be sent to PCP. -Creatinine remains stable with good UOP on day of d/c -we gave NS hydration at rate of 200cc/hr while here. Pt encouraged to drink PLENTY of fluids on d/c -No evidence of pulmonary edema or volume overload -No evidence of any compartment syndrome in any limb either Insomnia Cont trazodone HS Depression: -Cont lexapro daily Environmental allergies: -Cont Singulair and fluticasone nasal spray Constipation: -2/2 opiates -Cont senna, miralax, encouraged ambulation DVT prophylaxis: Lovenox daily. On day of discharge patient with no other acute concerns or complaints. Patient to get blood work tomorrow. Patient understood all risks of leaving hospital AGAINST MEDICAL ADVICE. Total Time Total Time Spent Total Time Spent (In Minutes): 30 Discharge Plan Discharge Items Patient Disposition: Home - Self-Care Reason For Visit: RHABDOMYOLYSIS Discharge Diagnosis: Rhabdomyolysis Activity: Per Instructions section Non-emergency contact: Primary Care Provider Call non-emergency contact if: you have any medication questions, your symptoms worsen and your pain is not controlled Follow-up/Referrals: Navin Zelaya MD [Primary Care Provider] - (Please schedule with primary care provider.) Diet: Regular Ambulatory Orders: Basic Metabolic Panel (Routine) Timeframe: 20200216 Location: Determined by Patient Ordered By: Norm Mae Creatine Kinase (Routine) Timeframe: 20200216 Location: Determined by Patient Ordered By: Norm Mae Addtl Attending Provider Instructions: You were admitted with concerns of muscle aches. Your labs were indicative of rhabdomyolysis. This is caused by muscle breakdown. Please follow the below instructions on discharge: It is very important for you to drink plenty of fluids. We have hydrated you here with IV fluids Your CK numbers have been downtrending which is encouraging. We will repeat lab work tomorrow just to make sure it is still heading in the right direction, and that your kidney function is still stable. when beginning a new exercise regimen please take it slow and steady. When sta rting with a heavy regimen this can cause muscle breakdown leading to rhabdomyolysis Please follow-up with your PCP within 1 week to follow-up results of lab work and for hospitalization Pending Studies at Discharge: No Stand-Alone Forms: [employer], Work/School Release (Inpt), Smoking Cessation Medications and DC Order Prescriptions: Continued cetirizine 10 mg Tablet 10 mg PO QAM RF: 0 lorazepam 0.5 mg Tablet 0.5 mg PO DIRECTED PRN (Reason: Anxiety) RF: 0 trazodone 100 mg Tablet 0 mg PO HS RF: 0 montelukast [Singulair] 10 mg Tablet 10 mg PO HS RF: 0 azelastine 137 mcg (0.1 %) Aerosol,[place] 2 spray INTRANASAL BID RF: 0 fluticasone propionate [Flonase Allergy Relief] 50 mcg/actuation S pray,Suspension 2 spray INTRANASAL BID RF: 0 oxymetazoline [Afrin (oxymetazoline)] 0.05 % [place],Non-Aerosol 2 spray INTRANASAL Q12H RF: 0 escitalopram oxalate [Lexapro] 5 mg Tablet 5 mg PO QAM RF: 0 Discharge Orders: Discharge Order (Routine); Ordered 02/15/20 Ordered By: Norm Mae Admission Data Admit Date/Time: 02/12/20 18:58 Attending Provider: Kulwant Lr Admit Provider: Anatoly Purvis Primary Care Provider: Navin Zelaya Other Providers: Anatoly Purvis Other Interventions: Discharge Summary Assessment (RN) Last Done: 02/15/20 16:44 DC Date/Time DO NOT enter until pt leaves facility: 02/15/20 17:07 Supervising Physician Co-Signing Physician Notes Attending Attestation, Resident Supervisory Note, and Discharge Note: Pt seen & examined, chart reviewed, care plan d/w PGY3 Dr Kip Mae. I agree w/ the rosas components of his discharge summary. 24yo male who presented with myalgias and dark-colored urine in the setting of a recently-initiated exercise program. Performed 2 days of heavy weight lifting. Initial CPK was >100,000. Received vigorous hydration during his hospital stay with improved CPK into the 30,000's. Creatinine was stable while here (0.6 at discharge). On day of discharge patient threatened AMA. We had a lengthy discussion about risks of leaving hospital including rebound in CPK and kidney injury. He voiced understanding, stating he needed to return to his home ([place]) in order to go back to work. We released him, with strict orders to avoid heavy exertional activity, HYDRATE copiously, and have repeat BMP with CPK within 24 hours of discharge. Again he voiced understanding. Discharge exam: gen - NAD heart - RRR, s1 s2, no murmur lungs - CTA b/l abd - soft, NT, ND, BS+, no HSM ext - no swelling of any limb, no edema, pulses 2+ b/l Kulwant Lr MD Resident Activity Tracking Resident Involvement: Resident Care Provided Care Provided: Adult [facility]
--- NOTE | 2020-02-18 02:14 | Billing Data ---
Date of Service February 15, 2020 Coding Level of Care Code D/C Day Management <30 mins
== END 2020-02-15 17:07 | disposition home or self-care (01) | DRG 558 ==
LOC: ED 12:48 → 2N 18:58 → SUATTDRO 18:58 → 2N 19:40